=== PATIENT | female | born 1995 | race African-American/Black ===

== ENCOUNTER 2016-09-17 12:11 | Emergency (ER) | payer SELFPAY ==
[~2016-09-17] VITALS: Ht 165.1 cm; Wt 55.0 kg
[2016-09-17 12:13] VITALS: BP 103/64; PULSE 67; RESP 18; TEMP 99; O2SAT 100
[2016-09-17 13:55] LABS: BACTERIA, URINE RARE /hpf; BLOOD, URINE NEG (NEG); GLUCOSE,URINE NEG (NEG); HYALINE CAST, URINE 1 /lpf (RARE); KETONE, URINE NEG (NEG); NITRITE,URINE NEG (NEG); SQUAMOUS EPITHELIAL CELL URINE 3 /hpf (0-5); URINE COLOR LIGHT-YELLOW (YELLW/STRAW)
[2016-09-17] MEDS ORDERED: KETOROLAC TROMETHAMINE 60 MG/2 ML (IM) VIAL IM ONE (14:00)
[2016-09-17] MEDS ORDERED: ORPHENADRINE INJ 60 MG/2 ML AMP IM ONE (14:00)
[2016-09-17 14:03] LABS: COMMENT (UR) CULT NOT INDICATED; CULTURE IF INDICATED CULT NOT INDICATED
--- NOTE | 2016-09-17 14:04 | PD ---
HPI Chief Complaint: Flank/Kidney Pain Time Seen by Provider: 14:00 Travel History International Travel<30 days: No Contact w/Intl Traveler<30days: No Traveled to known affect area: No History of Present Illness HPI Patient's 26-year-old female presented to the emergency room for evaluation of left lower back pain. Patient states it started this morning, it woke her up from her sleep. She states pain is increased when she is walking or moving. Resting alleviate somewhat.. Patient denies any dysuria, no new injuries or traumas. Patient does lift heavier objects, she works as a [employer] business analyst at [employer]. Patient rates her pain as a 7/10. She states it shoots up her back. She denies any abdominal pain, chest pain, shortness of breath, numbness or weakness in extremities, no bladder or bowel incontinence. PFSH Past Medical History Medical History: Denies Significant Hx Immunizations Current: Yes Influenza Vaccination: No ?: Unknown LMP: 08/06/16 Past Surgical History Surgical History: No Previous Surgery Social History Alcohol Use: No Tobacco Use: No Substance Use: No Allergies-Medications (Allergen,Severity, Reaction): Coded Allergies: No Known Allergies (Unverified , 09/17/16) Reported Meds & Prescriptions Reported Meds & Active Scripts Active Ibuprofen 800 Mg Tab 800 Mg PO Q8H PRN 10 Days Flexeril (Cyclobenzaprine HCl) 10 Mg Tab 10 Mg PO TID PRN 10 Days Review of Systems Except as stated in HPI: all other systems reviewed are Neg General / Constitutional: No: Fever, Chills Cardiovascular: No: Chest Pain or Discomfort Respiratory: No: Shortness of Breath Gastrointestinal: No: Nausea, Vomiting, Abdominal Pain Genitourinary: No: Dysuria, Pelvic Pain, Flank Pain Musculoskeletal: Positive: Myalgias, Cramping, Pain Neurologic: No: Weakness, Dizziness, Focal Abnormalities Physical Exam Narrative GENERAL: Well-developed, well-nourished, alert female. Resting comfortably in no acute distress. SKIN: Warm and dry. HEAD: Atraumatic. Normocephalic. EYES: Pupils equal and round. No scleral icterus. No injection or drainage. ENT: No nasal bleeding or discharge. Mucous membranes pink and moist. NECK: Trachea midline. No JVD. CARDIOVASCULAR: Regular rate and rhythm. No murmur appreciated. RESPIRATORY: No accessory muscle use. Clear to auscultation. Breath sounds equal bilaterally. GASTROINTESTINAL: Abdomen soft, non-tender, nondistended. Hepatic and splenic margins not palpable. MUSCULOSKELETAL: No obvious deformities. No clubbing. No cyanosis. No edema. Tenderness to palpation in left lower back. Positive CVAT on the left NEUROLOGICAL: Awake and alert. No obvious cranial nerve deficits. Motor grossly within normal limits. Normal speech. PSYCHIATRIC: Appropriate mood and affect; insight and judgment normal. Data Data Last Documented VS Vital Signs Date Time Temp Pulse Resp B/P Pulse Ox O2 Delivery O2 Flow Rate FiO2 09/17/16 12:13 99.0 67 18 103/64 100 Orders Urinalysis - C+S If Indicated (09/17/16 13:04) Ketorolac Inj (Toradol Inj) (09/17/16 14:00) Orphenadrine Inj (Norflex Inj) (09/17/16 14:00) Labs Laboratory Tests Test 09/17/16 13:30 Urine Color LIGHT-YELLOW Urine Turbidity CLEAR Urine pH 7.0 Urine Specific [place] 1.011 Urine Protein NEG mg/dL Urine Glucose (UA) NEG mg/dL Urine Ketones NEG mg/dL Urine Occult Blood NEG Urine Nitrite NEG Urine Bilirubin NEG Urine Urobilinogen LESS THAN 2.0 MG/DL Urine Leukocyte Esterase MOD Urine RBC 1 /hpf Urine WBC 2 /hpf Urine Squamous Epithelial 3 /hpf Cells Urine Bacteria RARE /hpf Urine Hyaline Casts 1 /lpf Microscopic Urinalysis Comment CULT NOT INDICATED MDM Medical Decision Making Medical Screen Exam Complete: Yes Emergency Medical Condition: Yes Interpretation(s) Vital Signs Date Time Temp Pulse Resp B/P Pulse Ox O2 Delivery O2 Flow Rate FiO2 09/17/16 12:13 99.0 67 18 103/64 100 Differential Diagnosis Spasm versus strain versus discogenic pain versus urinary tract infection versus pyelonephritis versus other Narrative Course Patient is a 21-year-old female presenting to the emergency department for evaluation of low back pain that started upon awakening this morning. There is no defining injury or trauma. Patient denies any dysuria. Urinalysis ordered and pending. Toradol and Norflex for pain. Patient reassessed at 1510 number she reports significant improvement in her pain, she is able to move around easily. Urinalysis reviewed, no signs of urinary tract infection patient was encouraged to take medications as directed, alternate heat and ice to affected area, continue range of motion exercises, avoid bed rest. Patient was encouraged to follow-up with her primary doctor return to emergency department for any new or worsening symptoms. Patient verbalized understanding of these instructions. Patient is stable for discharge. Diagnosis Primary Impression: Lumbar paraspinal muscle spasm Referrals: Primary Care Physician Patient Instructions: General Instructions, Muscle Spasm (ED), Muscle Strain ( ED) Additional Instructions: Follow-up with her primary doctor Take medications as directed Apply warm moist heat to affected area, continue range of motion exercises, avoid bed rest, avoid exacerbating activities Return to emergency department for any new or worsening symptoms Med/Other Pt SpecificInfo: Prescription(s) given Scripts Ibuprofen 800 Mg [id number] Mg PO Q8H PRN (Pain/Inflammation) 10 Days Ref 0 Prov:Olga Cotter 09/17/16 Cyclobenzaprine (Flexeril)10 Mg Tab10 Mg PO TID PRN (MUSCLE SPASM) 10 Days Ref 0 Prov:Olga Cotter 09/17/16 Disposition: 01 DISCHARGE HOME Condition: Stable Olga Cotter Sep 17, 2016 14:04
[2016-09-17] MEDS ORDERED: CYCL1TAB29 PO (15:11)
[2016-09-17] MEDS ORDERED: IBUP800T23 PO (15:11)
[2016-09-17 15:14] VITALS: RESP 15
== END 2016-09-17 15:28 | disposition home or self-care (01) ==
LOC: NETRI 12:11
DX: M62.830 Muscle spasm of back (principal)
CPT/HCPCS: 81001; 96372; 99283; J1885; J2360